=== PATIENT | female | born 1995 | race Caucasian/White ===

== ENCOUNTER 2023-04-28 13:10 | Day surgery (SDC) | payer BC ==
[2023-04-28 13:43] VITALS: BMI 41.0
[2023-04-28 14:42] LABS: #Eosinphils 0.1 10x3/uL (0.0-0.5); #Monocytes 0.9 10x3/uL (0.0-1.1); #Neutrophils 6.8 10x3/uL (1.5-8.4); %Basophils 0.3 % (0.0-2.0); %Eosinophils 0.5 % (0.0-6.0); %Lymphocytes 19.3 % (18.0-47.0); %Monocytes 9.1 % (0.0-10.0); %Neutrophils 70.1 % (40.0-75.0); Hematocrit 33.2 % (34.9-44.5); Hemoglobin 11.4 g/dL (12.0-15.5); Mean Corpuscular HGB CONC 34.3 g/dL (32.0-36.0); Mean Corpuscular Hemoglobin 28.3 pg (27.0-33.0); Mean Corpuscular Volume 82.4 fl (81.6-98.3); Mean Platelet Volume 11.6 fl (7.4-10.4); Platelet Count 265 10x3/uL (150-450); RBC Distribution Width 13.6 % (11.5-14.5); Red Blood Cell (RBC) Count 4.03 10x6/uL (3.90-5.03); White Blood Cell (WBC) Count 9.7 10x3/uL (3.5-10.5)
[2023-04-28 14:48] LABS: Creatinine, Urine 60.07 mg/dL (47-110); Protein, Urine Random Quant Less than 10 mg/dL (1-14)
[2023-04-28 14:55] LABS: ALT (SGPT) 15 U/L (8-55); AST (SGOT) 19 U/L (5-34); Albumin 3.3 g/dL (3.5-5.0); Alkaline Phosphatase 312 U/L (40-110); Anion Gap 14 mmol/L (10-20); BUN (Urea Nitrogen) 9 mg/dL (7.0-18.7); Bilirubin, Total 0.3 mg/dL (0.2-1.2); Calc. Creatinine Clearance 199 mL/min (70-130); Calcium 9.5 mg/dL (7.8-10.44); Carbon Dioxide 18 mmol/L (22-29); Chloride 109 mmol/L (98-107); Estimated GFR 124; Globulin 3.1 g/dL (2.4-3.5); Glucose 106 mg/dL (70-105); Potassium 3.7 mmol/L (3.5-5.1); Protein, Total 6.4 g/dL (6.0-8.3); Sodium 137 mmol/L (136-145)
== END 2023-04-28 15:50 | disposition home or self-care (01) ==
LOC: CSHLD/OP 13:10
PROVIDERS: ATTEND Family Medicine
DX: O13.3 Gestational [pregnancy-induced] hypertension without significant proteinuria, third trimester (principal); O24.419 Gestational diabetes mellitus in pregnancy, unspecified control; O99.213 Obesity complicating pregnancy, third trimester; O21.9 Vomiting of pregnancy, unspecified; O99.613 Diseases of the digestive system complicating pregnancy, third trimester; K21.00 Gastro-esophageal reflux disease with esophagitis, without bleeding; O99.333 Smoking (tobacco) complicating pregnancy, third trimester; O99.343 Other mental disorders complicating pregnancy, third trimester; F41.9 Anxiety disorder, unspecified; F32.A Depression, unspecified; Z98.890 Other specified postprocedural states; Z79.84 Long term (current) use of oral hypoglycemic drugs; Z79.4 Long term (current) use of insulin; Z79.82 Long term (current) use of aspirin; Z79.899 Other long term (current) drug therapy; Z88.9 Allergy status to unspecified drugs, medicaments and biological substances; Z3A.34 34 weeks gestation of pregnancy
CPT/HCPCS: 36415; 76815; 80053; 82570; 84156; 85025; 99283

== ENCOUNTER 2023-05-02 21:56 | Observation (INO) | payer BC ==
[2023-05-02] MEDS ORDERED: hydrALAZINE 20 MG/ML VIAL SLOW IVP PRN ×2 (22:15→23:20)
[2023-05-02 22:20] VITALS: BMI 41.0
[2023-05-02 23:06] LABS: #Eosinphils 0.1 10x3/uL (0.0-0.5); #Monocytes 1.1 10x3/uL (0.0-1.1); #Neutrophils 6.3 10x3/uL (1.5-8.4); %Basophils 0.4 % (0.0-2.0); %Eosinophils 0.7 % (0.0-6.0); %Lymphocytes 24.1 % (18.0-47.0); %Monocytes 11.4 % (0.0-10.0); %Neutrophils 62.8 % (40.0-75.0); Hematocrit 32.8 % (34.9-44.5); Hemoglobin 11.4 g/dL (12.0-15.5); Mean Corpuscular HGB CONC 34.8 g/dL (32.0-36.0); Mean Corpuscular Hemoglobin 28.9 pg (27.0-33.0); Mean Platelet Volume 11.8 fl (7.4-10.4); Platelet Count 269 10x3/uL (150-450); RBC Distribution Width 13.6 % (11.5-14.5); Red Blood Cell (RBC) Count 3.95 10x6/uL (3.90-5.03)
[2023-05-02] MEDS ORDERED: Ondansetron PF 4 MG/2 ML Vial IVP PRN (23:20)
[2023-05-02] MEDS ORDERED: Promethazine HCl 25 MG/ML VIAL IM PRN (23:20)
[2023-05-02 23:23] LABS: Creatinine, Urine 74.76 mg/dL (47-110)
[2023-05-02 23:29] LABS: ALT (SGPT) 16 U/L (8-55); AST (SGOT) 20 U/L (5-34); Albumin 3.4 g/dL (3.5-5.0); Alkaline Phosphatase 375 U/L (40-110); Anion Gap 15 mmol/L (10-20); BUN (Urea Nitrogen) 8 mg/dL (7.0-18.7); Bilirubin, Total 0.2 mg/dL (0.2-1.2); Calc. Creatinine Clearance 202 mL/min (70-130); Calcium 9.1 mg/dL (7.8-10.44); Carbon Dioxide 18 mmol/L (22-29); Chloride 108 mmol/L (98-107); Estimated GFR 125; Globulin 2.5 g/dL (2.4-3.5); Glucose 108 mg/dL (70-105); Potassium 3.5 mmol/L (3.5-5.1); Protein, Total 5.9 g/dL (6.0-8.3); Sodium 137 mmol/L (136-145)
[2023-05-02] MEDS ORDERED: Oxytocin 30 units/NS 500 ML 500 ML IV SCH (23:30)
[2023-05-02] MEDS: Labetalol HCl 100 MG TAB PO SCH (23:35)
[2023-05-02 23:36] VITALS: BP 141/83
[2023-05-03] MEDS: Lantus 1000 UNITS/10 ML VIAL SC SCH
[2023-05-03] MEDS ORDERED: Acetaminophen 500 MG TAB PO PRN (02:45)
[2023-05-03] MEDS ORDERED: Labetalol HCl 100 MG TAB PO SCH (09:00)
[2023-05-04 19:39] LABS: Group B Streptococcus by PCR Not Detected (NotDetected)
== END 2023-05-03 07:52 | disposition home or self-care (01) ==
LOC: CSHLD/OP 21:56 → CSHLD 23:22
PROVIDERS: ADMIT Obstetrics & Gynecology; ATTEND Obstetrics & Gynecology
DX: O13.3 Gestational [pregnancy-induced] hypertension without significant proteinuria, third trimester (principal); O99.891 Other specified diseases and conditions complicating pregnancy; R51.9 Headache, unspecified; O24.419 Gestational diabetes mellitus in pregnancy, unspecified control; O00.01 Abdominal pregnancy with intrauterine pregnancy; O99.213 Obesity complicating pregnancy, third trimester; O99.613 Diseases of the digestive system complicating pregnancy, third trimester; K21.9 Gastro-esophageal reflux disease without esophagitis; Z88.9 Allergy status to unspecified drugs, medicaments and biological substances; Z79.84 Long term (current) use of oral hypoglycemic drugs; Z79.4 Long term (current) use of insulin; Z91.018 Allergy to other foods; Z3A.34 34 weeks gestation of pregnancy
CPT/HCPCS: 36415; 36416; 76819; 80053; 82570; 84156; 85025; 87653; 96372; 99285; G0378; J1815